=== PATIENT | male | born 1970 | race Caucasian/White ===

== ENCOUNTER 2018-11-17 07:48 | Emergency (ER) | payer MEDICARE, MEDICAID ==
[~2018-11-17] VITALS: Ht 188 cm; Wt 72.6 kg
[~2018-11-17 07:48] MED LIST: ACHD5005 PO; CEPH500C PO; CIPR-225 PO; CIPR500T4 PO; CITA40TA19 PO; CPR500T PO; DOCU-143 PO; HYDR-229 PO; HYDR-2997 PO; HYDR-3730 PO; HYDR-4226 PO; LIDO113G3 TP; NFPRILOC40 PO; ONDAN4ODT SL; OXYC-12 PO; OXYC-471 PO; PHEN-640 PO; POLY17PO6 PO; PRM25T PO; RABE20TA PO; TAMS0.4C98 PO; TRM50T PO
[2018-11-17] MEDS ORDERED: LACTATED RINGERS 1,000 ML IV ONE (07:59)
[2018-11-17] MEDS ORDERED: KETOROLAC 30 MG/ML VIAL IVP ONE (08:00)
--- NOTE | 2018-11-17 08:04 | ED Abdominal Pain ---
General Stated Complaint: ABD PAIN Source of Information: Patient, Family Exam Limitations: No Limitations History of Present Illness Date Seen by Provider: Nov 17, 2018 Time Seen by Provider: 07:52 Initial Comments Patient presents the ER with a chief complaint of about 5:00 this morning he started having some left abdominal flank and back pain. He's not been able to urinate this morning. He has a history of kidney stones and he feels that this pain is from a kidney stone. He denies any nausea. He is taking his last couple doses of harvoni. He does not take any other medications. He denies medical allergies. He denies fevers chills or dysuria or hematuria. Patient states no familial history of coronary disease or early onset coronary disease. No personal history of coronary disease or heart problems. No history of diabetes, thyroid, hypertension, hyperlipidemia. He does have a history of smoking a pack per day. Allergies and Home Medications Allergies Coded Allergies: No Known Drug Allergies (Unverified , 02/09/09) Patient Home Medication List Home Medication List Reviewed: Yes Review of Systems Review of Systems Constitutional: No chills, No diaphoresis, No fever, No malaise EENTM: No Blurred Vision, No Double Vision Respiratory: Denies Cough, Denies Shortness of Air Cardiovascular: Denies Chest Pain, Denies Edema, Denies Palpitations Gastrointestinal: See HPI; Denies Abdomen Distended; Abdominal Pain (left flank and lower quadrant abdomen); Denies Constipated, Denies Diarrhea, Denies Nausea, Denies Poor Fluid Intake Genitourinary: Denies Discharge, Denies Drainage, Denies Frequency Musculoskeletal: No back pain, No joint pain Past Ybpopha-Xpesaf-Urnzrs Hx Patient Social History Alcohol Use: Past History (8 years ago) Recreational Drug Use: Yes Drug of Choice: MJ Smoking Status: Current Everyday Smoker Type Used: Cigarettes (1 pp) Seasonal Allergies Seasonal Allergies: No Past Medical History Gallbladder Reproductive Disorders: No Kidney Stones Chronic Constipation, Hemorrhoids, Hepatitis Chronic Back Pain, Fractures Adverse Reaction/Blood Tranf: No Family Medical History No Pertinent Family Hx Physical Exam Vital Signs Vital Signs - First Documented 11/17/18 08:00 Temp 97.8 Pulse 73 Resp 30 B/P (MAP) 139/94 (109) Pulse Ox 100 Capillary Refill : Height/Weight/BMI Height: 6'2" Weight: 150lbs. 11.2oz. [id number]; 19.26 BMI Method:Stated General Appearance: moderate distress (restless, unable to get comfortable), thin HEENT: PERRL/EOMI, normal ENT inspection, pharynx normal Neck: non-tender, full range of motion, normal inspection Respiratory: chest non-tender, lungs clear, normal breath sounds, no respiratory distress, no accessory muscle use Cardiovascular: normal peripheral pulses, regular rate, rhythm, no edema, no murmur Gastrointestinal: normal bowel sounds, soft, no organomegaly, tenderness (left abdomen mildly) Extremities: normal range of motion, non-tender, normal inspection, normal capillary refill Back: No CVA tenderness (R); CVA tenderness (L) Neurologic/Psychiatric: alert, normal mood/affect, oriented x 3 Skin: normal color, warm/dry Progress/Results/Core Measures Results/Orders Lab Results Laboratory Tests Test 11/17/18 08:15 11/17/18 10:30 Range/Units White Blood Count 8.7 4.3-11.0 10^3/uL Red Blood Count 5.09 4.35-5.85 10^6/uL Hemoglobin 17.5 13.3-17.7 G/DL Hematocrit 49 40-54 % Mean Corpuscular Volume 97 80-99 FL Mean Corpuscular Hemoglobin 34 25-34 PG Mean Corpuscular Hemoglobin Concent 35 32-36 G/DL Red Cell Distribution Width 13.0 10.0-14.5 % Platelet Count 266 130-400 10^3/uL Mean Platelet Volume 8.6 7.4-10.4 FL Neutrophils (%) (Auto) 69 42-75 % Lymphocytes (%) (Auto) 21 12-44 % Monocytes (%) (Auto) 8 0-12 % Eosinophils (%) (Auto) 1 0-10 % Basophils (%) (Auto) 0 0-10 % Neutrophils # (Auto) 6.0 1.8-7.8 X 10^3 Lymphocytes # (Auto) 1.9 1.0-4.0 X 10^3 Monocytes # (Auto) 0.7 0.0-1.0 X 10^3 Eosinophils # (Auto) 0.1 0.0-0.3 10^3/uL Basophils # (Auto) 0.0 0.0-0.1 10^3/uL Prothrombin Time 11.6 L 12.2-14.7 SEC INR Comment 0.9 0.8-1.4 Activated Partial Thromboplast Time 28 24-35 SEC Sodium Level 141 135-145 MMOL/L Potassium Level 4.2 3.6-5.0 MMOL/L Chloride Level 107 98-107 MMOL/L Carbon Dioxide Level 21 21-32 MMOL/L Anion Gap 13 5-14 MMOL/L Blood Urea Nitrogen 17 7-18 MG/DL Creatinine 1.37 H 0.60-1.30 MG/DL Estimat Glomerular Filtration Rate 56 BUN/Creatinine Ratio 12 Glucose Level 90 70-105 MG/DL Calcium Level 9.8 8.5-10.1 MG/DL Corrected Calcium 9.4 8.5-10.1 MG/DL Magnesium Level 2.4 1.8-2.4 MG/DL Total Bilirubin 0.6 0.1-1.0 MG/DL Aspartate Amino Transf (AST/SGOT) 21 5-34 U/L Alanine Aminotransferase (ALT/SGPT) 16 0-55 U/L Alkaline Phosphatase 70 40-136 U/L Myoglobin 57.3 10.0-92.0 NG/ML Troponin I < 0.028 <0.028 NG/ML Total Protein 7.7 6.4-8.2 GM/DL Albumin 4.5 3.2-4.5 GM/DL My Orders Orders - OLIVERIO MANCUSO Ketorolac Injection (Toradol Injection) (11/17/18 08:00) Saline Lock/Iv-Start (11/17/18 07:59) Lactated Ringers (Lr 1000 Ml Iv Solution (11/17/18 07:59) Cbc With Automated Diff (11/17/18 08:05) Magnesium (11/17/18 08:05) Chest 1 View, Ap/Pa Only (11/17/18 08:05) Ekg Tracing (11/17/18 08:05) Cardiac Profile 1 (11/17/18 08:05) Comprehensive Metabolic Panel (11/17/18 08:05) Myoglobin Serum (11/17/18 08:05) Protime With Inr (11/17/18 08:05) Partial Thromboplastin Time (11/17/18 08:05) Monitor-Rhythm Ecg Trace Only (11/17/18 08:05) Ct Abd/Pelvis Wo(Kidney Stone) (11/17/18 08:05) Abdomen/Kub 1view (11/17/18 08:05) Ondansetron Injection (Zofran Injectio (11/17/18 08:15) Ondansetron Injection (Zofran Injectio (11/17/18 08:11) Aspirin Chewable Tablet (Baby Aspirin Ch (11/17/18 08:30) Ekg Tracing (11/17/18 09:00) Fentanyl Injection (Sublimaze Injection (11/17/18 09:00) Ketamine Injection (Ketalar Injection) (11/17/18 09:00) Fentanyl Injection (Sublimaze Injection (11/17/18 08:45) Ns (Ivpb) (Sodium Chloride 0.9% Ivpb Bag (11/17/18 08:55) Lorazepam Injection (Ativan Injection) (11/17/18 09:15) Lorazepam Injection (Ativan Injection) (11/17/18 09:20) Ondansetron Injection (Zofran Injectio (11/17/18 09:45) Lorazepam Injection (Ativan Injection) (11/17/18 09:45) Troponin I (11/17/18 10:30) Medications Given in ED Current Medications Medications Dose Ordered Sig/Bruce Route Start Time Stop Time Status Last Admin Dose Admin Aspirin 324 mg ONCE ONCE PO 11/17/18 08:30 11/17/18 08:31 DC 11/17/18 08:39 324 MG Fentanyl Citrate 50 mcg ONCE ONCE IVP 11/17/18 09:00 11/17/18 09:01 DC 11/17/18 08:50 50 MCG Ketamine HCl 8 mg ONCE ONCE IV 11/17/18 09:00 11/17/18 09:01 DC 11/17/18 09:11 8 MG Ketorolac Tromethamine 30 mg ONCE ONCE IVP 11/17/18 08:00 11/17/18 08:01 DC 11/17/18 08:15 30 MG Lactated Ringer's 1,000 ml @ 0 mls/hr Q0M ONCE IV 11/17/18 07:59 11/17/18 08:01 DC 11/17/18 08:15 1,000 MLS/HR Lorazepam 1 mg ONCE ONCE IVP 11/17/18 09:45 11/17/18 09:46 DC 11/17/18 09:45 1 MG Lorazepam 1 mg ONCE PRN IVP 11/17/18 09:20 11/17/18 09:18 1 MG Ondansetron HCl 4 mg ONCE ONCE IVP 11/17/18 08:15 11/17/18 08:16 DC 11/17/18 08:20 4 MG Ondansetron HCl 4 mg ONCE ONCE IVP 11/17/18 09:45 11/17/18 09:46 DC 11/17/18 09:45 4 MG Sodium Chloride 50 ml @ ud STK-MED ONCE .ROUTE 11/17/18 08:55 11/17/18 09:00 DC 11/17/18 09:12 50 MLS/HR Vital Signs/I&O 11/17/18 08:00 Temp 97.8 Pulse 73 Resp 30 B/P (MAP) 139/94 (109) Pulse Ox 100 Progress Progress Note #1: Time: 08:07 Progress Note The patient's convinced that this pain is from a kidney stone and it seems most likely because he is restless unable to get comfortable. 40 to give him the Toradol pain shot he says he had a few sharp brief second long intermittent stabbing pain in his left chest. It did not radiate anywhere and is having no sweats nausea or chills. He has no history of coronary artery disease. We'll going obtain some blood work and EKG but this likely is just related to his abdominal/flank pain. We'll plan to give him some fluids since he has not been able to urinate today. Couple brief seconds of chest pain while he is having a kidney stone is not great evidence for coronary disease. We will not Give aspirin at this time because he is nauseated and actively vomiting. ED ACS 6 points. Low risk by the EDACS Score. If the patient also has: (1) EKG without new ischemic changes and (2) negative initial and 2-hour troponins, then this patient is safe for discharge to early outpatient follow-up investigation (or proceed to earlier inpatient testing). If EKG with ischemic changes or positive troponin, they are not low risk and require normal risk stratification. Patient does not think this is related to his heart and at this time is declining to do a two-hour delta troponin. Initial EKG has some nonspecific findings of ST depression in inferior leads. We 'll repeat in 30 minutes. We can try and have him chew up some aspirin after his nausea subsides. Progress Note #2: Time: 09:23 Progress Note Patient got 32 cc of the 50 cc bag about 5 mg of the ketamine and began to experience a dysphoric reaction so we stopped the ketamine infusion and gave him a milligram of Ativan. His pain is under great control he denies that he is having any pain. We will continue to monitor him. Progress Note #3: Time: 10:55 Progress Note After a second milligram of Ativan the patient is resting comfortably. His 2 mm kidney stone is just about passed so we'll provide him with a strainer, couple pain medicines, Zofran and some antibiotics with follow-up. Initial ECG Impression Date: Nov 17, 2018 Initial ECG Impression Time: 08:14 Initial ECG Rate: 67 Initial ECG Rhythm: Normal Sinus Initial ECG Intervals: Normal Initial ECG Impression: Normal, Nonspecific Changes Initial ECG Comparisson: No Previous ECG Available Comment Less than one block and ST depression in leads 2, 3, aVF foot. Diagnostic Imaging Diagonstic Imaging: Xray Plain Films/CT/US/NM/MRI: chest (1 view) Comments [facility] [place], [place] NAME: LOREN STEPHEN [facility] REC#: [id number] PT STATUS: REG ER : 1970 PHYSICIAN: OLIVERIO MANCUSO MD ADMIT DATE: 11/17/18/ER Draft Date of Exam:11/17/18 CHEST 1 VIEW, AP/PA ONLY INDICATION: Shortness of breath. FINDINGS: Lungs are hyperexpanded but clear. The nipple shadows bilaterally are noted incidentally. Hilar and mediastinal contours normal. No effusion or pneumothorax. IMPRESSION: Clear mildly hyperexpanded lungs, otherwise negative. Dictated on workstation # [id number] Dict: 11/17/1831 Trans: 11/17/18 0934 KB [id number] Interpreted by: SOHAIL CASTILLO Electronically signed by: Reviewed: Reviewed by Me Diagonstic Imaging: Xray Plain Films/CT/US/NM/MRI: abdomen (KUB 1 view) Comments [facility] [place] [place] NAME: LOREN STEPHEN [facility] REC#: [id number] PT STATUS: REG ER : 1970 PHYSICIAN: OLIVERIO MANCUSO MD ADMIT DATE: 11/17/18/ER Draft Date of Exam:11/17/18 ABDOMEN/KUB 1VIEW INDICATION: Left-sided back pain, inability to urinate. FINDINGS: Left lower renal calculus is present better visualized at earlier CT. Stone either in the bladder's lumen or in the distal left UVJ is believed visualized and not obviously changed from the prior CT measuring just over 2 mm projecting leftward to the coccyx. The bowel gas pattern unremarkable. There is stool in the colon. There are clips at the gallbladder fossa. IMPRESSION: Tiny left paramedian pelvic calculus unchanged from earlier CT. Left lower pole renal stone better visualized at CT. No other significant finding. Dictated on workstation # [id number] Dict: 11/17/18 0925 Trans: 11/17/18 0933 KB [id number] Interpreted by: SOHAIL CASTILLO Electronically signed by: Reviewed: Reviewed by Wa Diagonstic Imaging: CT (without contrast kidney stone study) Plain Films/CT/US/NM/MRI: abdomen, pelvis Comments [facility] [place] [place] NAME: LOREN STEPHEN [facility] REC#: [id number] PT STATUS: REG ER : 1970 PHYSICIAN: OLIVERIO MANCUSO MD ADMIT DATE: 11/17/18/ER Draft Date of Exam:11/17/18 CT ABD/PELVIS WO(KIDNEY STONE) PROCEDURE: CT urinary tract, rule out kidney stone. TECHNIQUE: Multiple contiguous axial images were obtained through the abdomen and pelvis without the use of intravenous contrast. INDICATION: Bilateral flank pain. Study compared 10/28/2015. FINDINGS: Benign subpleural scarring in the right middle lobe stable. Lung bases nonacute. There is a 2.1 mm stone in the left hemipelvis which is either through the UVJ and into the bladder's lumen or at the most distal aspect of the left UVJ. There is minimal upstream hydroureteronephrosis with mild perinephric and periureteric edema but no fluid collection. Additional bilateral intrarenal stones are noted with a right renal cyst. Largest residual renal calculus is in the left lower pole calyx measuring 4.9 mm. The gallbladder is absent. The adrenals, spleen and pancreas negative. No biliary dilatation. No bowel obstruction. No appendicitis or diverticulitis. IMPRESSION: A 2.1 mm stone is either passed or nearly completely passed through the left UVJ with mild upstream left-sided hydroureteronephrosis and additional bilateral intrarenal stones noted. Dictated on workstation # [id number] Dict: 11/17/18918 Trans: 11/17/18929 KB [id number] Interpreted by: SOHAIL CASTILLO Electronically signed by: Reviewed: Reviewed by Me Departure Impression Primary Impression: Left ureteral calculus Additional Impression: Ketamine adverse reaction Qualified Codes: T41.295A - Adverse effect of other general anesthetics, initial encounter Disposition: HOME, SELF-CARE Condition: Stable Departure-Patient Inst. Decision time for Depature: 10:58 [place]: [facility] [place] Primary Care Physician MARIANA CÁRDENAS MD Patient Instructions: Kidney Stones (DC) Add. Discharge Instructions: Drink lots of fluids. Caffeine is okay. Use Tylenol and ibuprofen for your pain or you can take one half to one tablet of pain pill for breakthrough pain Every 6 hours as needed. If you have nausea take one tablet of Zofran every 6 hours and allowed to dissolve in your mouth. Strain your urine to try and see if you catch the stone. Follow-up with urology as necessary. contact centre supervisor the Keflex and take one capsule twice a day for the next 5 days starting tomorrow to prevent worsening urinary tract infection. Take the Flomax 1 tablet every night to help pass the stone. If you passed the stone then you can stop taking the Flomax. Is not unusual have a little bit of blood in the urine or pain for 2 days after passing a stone. Scripts Tamsulosin HCl (Flomax) 0.4 Mg Cap 0.4 MG PO HS for 7 Days, #7 CAP 0 Refills Prov: OLIVERIO MANCUSO 11/17/18 Hydrocodone Bit/Acetaminophen (Hydrocodone/Acetaminophen 5/325mg Tablet) 1 Tab Tab 1-2 EACH PO Q6H PRN for PAIN-BREAKTHROUGH MDD 10 for 7 Days, #15 TAB 0 Refills Prov: OLIVERIO MANCUSO 11/17/18 Ondansetron (Ondansetron Odt) 4 Mg Tab.rapdis 4 MG PO Q6H PRN for NAUSEA/VOMITING, #8 TAB 0 Refills Prov: OLIVERIO MANCUSO 11/17/18 Cephalexin (Cephalexin) 500 Mg Tablet 500 MG PO BID for 5 Days, #10 TAB 0 Refills Prov: OLIVERIO MANCUSO 11/17/18 Work/School Note: Work Release Form Date Seen in the Emergency Department: Nov 17, 2018 Return to Work: Nov 18, 2018 Restrictions: No Restrictions OLIVERIO MANCUSO Nov 17, 2018 08:04
[2018-11-17] MEDS ORDERED: ONDANSETRON 4 MG/2 ML (SDV) Z0FRAN ONE (08:11)
[2018-11-17] MEDS ORDERED: ONDANSETRON 4 MG/2 ML (SDV) Z0FRAN IVP ONE ×2 (08:15→09:45)
[2018-11-17 08:22] LABS: BASOPHILS % (AUTO) 0 % (0-10); EOSINOPHILS # (AUTO) 0.1 10^3/uL (0.0-0.3); EOSINOPHILS % (AUTO) 1 % (0-10); HEMATOCRIT 49 % (40-54); HEMOGLOBIN 17.5 G/DL (13.3-17.7); LYMPHOCYTES # (AUTO) 1.9 X 10^3 (1.0-4.0); LYMPHOCYTES % (AUTO) 21 % (12-44); MEAN CORPUSCULAR HEMOGLOBIN 34 PG (25-34); MEAN CORPUSCULAR HGB CONC 35 G/DL (32-36); MEAN CORPUSCULAR VOLUME 97 FL (80-99); MEAN PLATELET VOLUME 8.6 FL (7.4-10.4); MONOCYTES # (AUTO) 0.7 X 10^3 (0.0-1.0); MONOCYTES % (AUTO) 8 % (0-12); NEUTROPHILS % (AUTO) 69 % (42-75); PLATELET COUNT 266 10^3/uL (130-400); WHITE BLOOD COUNT 8.7 10^3/uL (4.3-11.0)
[2018-11-17] MEDS ORDERED: ASPIRIN 81 MG CHEW (CHILDREN'S ASA) PO ONE (08:30)
[2018-11-17 08:33] LABS: INR 0.9 (0.8-1.4); PROTHROMBIN TIME PATIENT 11.6 SEC (12.2-14.7)
[2018-11-17] MEDS ORDERED: LEDI1TAB PO (08:36)
[2018-11-17 08:41] LABS: ALANINE AMINOTRANSFERASE 16 U/L (0-55); ALBUMIN 4.5 GM/DL (3.2-4.5); ALKALINE PHOSPHATASE 70 U/L (40-136); BILIRUBIN,TOTAL 0.6 MG/DL (0.1-1.0); BUN/CREATININE RATIO 12; CALCIUM 9.8 MG/DL (8.5-10.1); CARBON DIOXIDE 21 MMOL/L (21-32); CHLORIDE 107 MMOL/L (98-107); CREATININE SERUM 1.37 MG/DL (0.60-1.30); GFR ESTIMATED 56; GLUCOSE 90 MG/DL (70-105); MAGNESIUM 2.4 MG/DL (1.8-2.4); POTASSIUM 4.2 MMOL/L (3.6-5.0); SODIUM 141 MMOL/L (135-145); TOTAL PROTEIN 7.7 GM/DL (6.4-8.2)
[2018-11-17] MEDS ORDERED: fentaNYL INJECTION 100 MCG/2 ML AMP ONE (08:45)
[2018-11-17 08:47] LABS: MYOGLOBIN SERUM 57.3 NG/ML (10.0-92.0)
[2018-11-17] MEDS ORDERED: NS (IVPB) 50 ML ONE (08:55)
[2018-11-17] MEDS ORDERED: KETAMINE HCL 100 MG/ML 5 ML VIAL IV ONE (09:00)
[2018-11-17] MEDS ORDERED: fentaNYL INJECTION 100 MCG/2 ML AMP IVP ONE (09:00)
[2018-11-17] MEDS ORDERED: LORazepam INJ 2 MG/ML (ATIVAN) VIAL ONE (09:15)
--- NOTE | 2018-11-17 09:17 | NUR ---
PT HAVING ADVERSE SIDE EFFECT FROM KETAMINE, SHAKING,YELLING OUT, SCARED, STATES FEELING LIKE ROOM IS SPINNING
[2018-11-17] MEDS ORDERED: LORazepam INJ 2 MG/ML (ATIVAN) VIAL IVP PRN (09:20)
--- NOTE | 2018-11-17 09:30 | Diagnostic Imaging Report ---
PROCEDURE: CT urinary tract, rule out kidney stone. TECHNIQUE: Multiple contiguous axial images were obtained through the abdomen and pelvis without the use of intravenous contrast. INDICATION: Bilateral flank pain. Study compared 10/28/2015. FINDINGS: Benign subpleural scarring in the right middle lobe stable. Lung bases nonacute. There is a 2.1 mm stone in the left hemipelvis which is either through the UVJ and into the bladder's lumen or at the most distal aspect of the left UVJ. There is minimal upstream hydroureteronephrosis with mild perinephric and periureteric edema but no fluid collection. Additional bilateral intrarenal stones are noted with a right renal cyst. Largest residual renal calculus is in the left lower pole calyx measuring 4.9 mm. The gallbladder is absent. The adrenals, spleen and pancreas negative. No biliary dilatation. No bowel obstruction. No appendicitis or diverticulitis. IMPRESSION: A 2.1 mm stone is either passed or nearly completely passed through the left UVJ with mild upstream left-sided hydroureteronephrosis and additional bilateral intrarenal stones noted. Dictated by: Dictated on workstation # [id number]
--- NOTE | 2018-11-17 09:33 | Diagnostic Imaging Report ---
INDICATION: Left-sided back pain, inability to urinate. FINDINGS: Left lower renal calculus is present better visualized at earlier CT. Stone either in the bladder's lumen or in the distal left UVJ is believed visualized and not obviously changed from the prior CT measuring just over 2 mm projecting leftward to the coccyx. The bowel gas pattern unremarkable. There is stool in the colon. There are clips at the gallbladder fossa. IMPRESSION: Tiny left paramedian pelvic calculus unchanged from earlier CT. Left lower pole renal stone better visualized at CT. No other significant finding. Dictated by: Dictated on workstation # [id number]
--- NOTE | 2018-11-17 09:34 | Diagnostic Imaging Report ---
INDICATION: Shortness of breath. FINDINGS: Lungs are hyperexpanded but clear. The nipple shadows bilaterally are noted incidentally. Hilar and mediastinal contours normal. No effusion or pneumothorax. IMPRESSION: Clear mildly hyperexpanded lungs, otherwise negative. Dictated by: Dictated on workstation # [id number]
[2018-11-17] MEDS ORDERED: LORazepam INJ 2 MG/ML (ATIVAN) VIAL IVP ONE (09:45)
[2018-11-17] MEDS ORDERED: cefTRIAXone FOR IV USE 1,000 MG in NS (IVPB) 50 ML IV ONE (11:00)
[2018-11-17] MEDS ORDERED: ACHD5005 PO (11:13)
[2018-11-17] MEDS ORDERED: TAMS0.4C98 PO (11:13)
[2018-11-17] MEDS ORDERED: ONDA4TAB11 PO (11:13)
[2018-11-17] MEDS ORDERED: CEPH500T PO (11:13)
[2018-11-17 11:19] VITALS: BP 118/82
== END 2018-11-17 11:23 | disposition home or self-care (01) ==
LOC: EDUNIT# 07:48 → ER 07:49
DX: N13.2 Hydronephrosis with renal and ureteral calculous obstruction (principal); T41.295A Adverse effect of other general anesthetics, initial encounter; M54.5 Low back pain; R06.02 Shortness of breath; F17.210 Nicotine dependence, cigarettes, uncomplicated; Z87.442 Personal history of urinary calculi; Z87.19 Personal history of other diseases of the digestive system
CPT/HCPCS: 36415; 71045; 74018; 74176; 80053; 83735; 83874; 84484; 85025; 85610; 85730; 93005; 93041; 96361; 96374; 96375; 96376

== ENCOUNTER 2019-07-21 09:26 | Emergency (ER) | payer MEDICARE, MEDICAID ==
[~2019-07-21] VITALS: Ht 187 cm; Wt 69.2 kg
[~2019-07-21 09:26] MED LIST changes: +CEPH500T PO; +LEDI1TAB PO; +ONDA4TAB11 PO
[2019-07-21] MEDS ORDERED: NS IV 1000 ML 1,000 ML IV ONE ×2 (09:54→12:46)
[2019-07-21] MEDS ORDERED: KETOROLAC 30 MG/ML VIAL IVP STA (09:54)
[2019-07-21] MEDS ORDERED: fentaNYL INJECTION 100 MCG/2 ML AMP IVP STA (09:54)
[2019-07-21 10:03] LABS: BASOPHILS % (AUTO) 0 % (0-10); EOSINOPHILS # (AUTO) 0.1 10^3/uL (0.0-0.3); EOSINOPHILS % (AUTO) 2 % (0-10); HEMATOCRIT 48 % (40-54); HEMOGLOBIN 16.3 G/DL (13.3-17.7); LYMPHOCYTES # (AUTO) 1.8 X 10^3 (1.0-4.0); LYMPHOCYTES % (AUTO) 27 % (12-44); MEAN CORPUSCULAR HEMOGLOBIN 33 PG (25-34); MEAN CORPUSCULAR HGB CONC 34 G/DL (32-36); MEAN CORPUSCULAR VOLUME 96 FL (80-99); MEAN PLATELET VOLUME 9.1 FL (7.4-10.4); MONOCYTES # (AUTO) 0.8 X 10^3 (0.0-1.0); MONOCYTES % (AUTO) 12 % (0-12); NEUTROPHILS # (AUTO) 3.8 X 10^3 (1.8-7.8); NEUTROPHILS % (AUTO) 59 % (42-75); PLATELET COUNT 213 10^3/uL (130-400); RED CELL DISTRIBUTION WIDTH 12.8 % (10.0-14.5); WHITE BLOOD COUNT 6.5 10^3/uL (4.3-11.0)
--- NOTE | 2019-07-21 10:04 | NUR ---
PT COMPLAINS OF NAUSEA. DR ESPINOZA NOTIFIED.
--- NOTE | 2019-07-21 10:04 | ED Abdominal Pain ---
General Chief Complaint: Abdominal/GI Problems Stated Complaint: L SIDE PAIN Nursing Triage Note: ARRIVED VIA AMB TO ROOM 06 WITH COMPLAINTS OF LEFT SIDED ABD PAIN. THINKS IT MIGHT BE A KIDNEY STONE. Sepsis Screen: No Definite Risk Source of Information: Patient Exam Limitations: No Limitations History of Present Illness Date Seen by Provider: Jul 21, 2019 Time Seen by Provider: 09:50 Initial Comments Here with report of left lower quadrant abdominal pain since Saturday. States he's been drinking lots of water. Does have history of kidney stones and states that it feels like that. Reports that the pain is in the left lower quadrant but denies flank or back pain. He then goes on to say that he has left flank and back pain as well. States that it is hurting to touch and hurts to sit up. He's had previous kidney stones on the right but not on the left. Denies dysuria or blood in the urine. Reports that he is drinking lots of water but cannot urinate currently. Reports nausea but denies vomiting, diarrhea or fever. Timing/Duration: 2-3 Days Severity/Quality: Moderate, Severe, Aching Location: LLQ, Flank Radiation: Back Activities at Onset: None Modifying Factors: Worsens With Movement Associated Symptoms: Back Pain, Fever/Chills, Nausea/Vomiting; No Weakness Allergies and Home Medications Allergies Coded Allergies: ketamine (Verified Allergy, Severe, SEIZURE, 07/21/19) Home Medications Cephalexin 500 Mg Tablet, 500 MG PO BID Prescribed by: CAYLA ESPINOZA on 07/21/19 1249 Hydrocodone Bit/Acetaminophen 1 Ea Tablet, 1 EACH PO Q6H PRN for PAIN-MODERATE Prescribed by: CAYLA ESPINOZA on 07/21/19 1249 Patient Home Medication List Home Medication List Reviewed: Yes Review of Systems Review of Systems Constitutional: see HPI; No chills, No fever EENTM: No Symptoms Reported Respiratory: No Symptoms Reported Cardiovascular: No Symptoms Reported Gastrointestinal: See HPI Genitourinary: See HPI, Flank Pain, Pain Musculoskeletal: back pain, muscle pain Skin: lesions (left lower quadrant reports that there is an area of skin that has changed color.) Psychiatric/Neurological: No Symptoms Reported All Other Systems Reviewed Negative Unless Noted: Yes Past Gawwimi-Hcrinf-Utlgmq Hx Past Med/Social Hx: Reviewed Nursing Past Med/Soc Hx Patient Social History Alcohol Use: Past History Recreational Drug Use: Yes Drug of Choice: MJ Smoking Status: Current Everyday Smoker Type Used: Cigarettes Recent Foreign Travel: No Contact w/Someone Who Travel: No Recent Infectious Disease Expo: No Recent Hopitalizations: No Seasonal Allergies Seasonal Allergies: No Past Medical History Surgeries: Yes (back surgery, left arm fx, cysto and ureteroscopy, eswl) Gallbladder, Orthopedic Respiratory: No Cardiac: No Neurological: No Reproductive Disorders: No Kidney Stones Gastrointestinal: Yes (recurrent elevation in lipase, hx hep C) Chronic Constipation, Hemorrhoids, Hepatitis Musculoskeletal: Yes (5 ruptured disk) Chronic Back Pain, Fractures Endocrine: No Cancer: No Psychosocial: No Integumentary: No Blood Disorders: No Adverse Reaction/Blood Tranf: No Family Medical History Reviewed Nursing Family Hx No Pertinent Family Hx Physical Exam Vital Signs Vital Signs - First Documented 07/21/19 09:30 Temp 35.8 Pulse 71 Resp 16 B/P (MAP) 135/101 (112) Pulse Ox 100 O2 Delivery Room Air Capillary Refill : Less Than 3 Seconds Height/Weight/BMI Height: 6'2.00" Weight: 160lbs. 11.2oz. 72.390879mb; 19.00 BMI Method:Stated General Appearance: WD/WN, mild distress HEENT: PERRL/EOMI, pharynx normal Neck: full range of motion, supple Respiratory: lungs clear, normal breath sounds Cardiovascular: regular rate, rhythm, no murmur Peripheral Pulses: 2+ Dorsalis Pedis (R), 2+ Left Dors-Pedis (L), 2+ Radial Pulses (R), 2+ Radial Pulses (L) Gastrointestinal: soft, guarding (left lower quadrant), tenderness (left lower quadrant and flank); No mass Extremities: non-tender, normal inspection Back: normal inspection, no CVA tenderness, no vertebral tenderness Neurologic/Psychiatric: alert, oriented x 3 Skin: normal color, warm/dry; No rash; other (patient reported area skin change on the left lower abdomen. I do not see any significant erythema, rash, redness or other concerns. He does have some pigmentation area on the left lower quadrant that he is referring to.) Progress/Results/Core Measures Results/Orders Lab Results Laboratory Tests Test 07/21/19 09:43 07/21/19 10:44 Range/Units White Blood Count 6.5 4.3-11.0 10^3/uL Red Blood Count 4.97 4.35-5.85 10^6/uL Hemoglobin 16.3 13.3-17.7 G/DL Hematocrit 48 40-54 % Mean Corpuscular Volume 96 80-99 FL Mean Corpuscular Hemoglobin 33 25-34 PG Mean Corpuscular Hemoglobin Concent 34 32-36 G/DL Red Cell Distribution Width 12.8 10.0-14.5 % Platelet Count 213 130-400 10^3/uL Mean Platelet Volume 9.1 7.4-10.4 FL Neutrophils (%) (Auto) 59 42-75 % Lymphocytes (%) (Auto) 27 12-44 % Monocytes (%) (Auto) 12 0-12 % Eosinophils (%) (Auto) 2 0-10 % Basophils (%) (Auto) 0 0-10 % Neutrophils # (Auto) 3.8 1.8-7.8 X 10^3 Lymphocytes # (Auto) 1.8 1.0-4.0 X 10^3 Monocytes # (Auto) 0.8 0.0-1.0 X 10^3 Eosinophils # (Auto) 0.1 0.0-0.3 10^3/uL Basophils # (Auto) 0.0 0.0-0.1 10^3/uL Sodium Level 140 135-145 MMOL/L Potassium Level 4.4 3.6-5.0 MMOL/L Chloride Level 106 98-107 MMOL/L Carbon Dioxide Level 27 21-32 MMOL/L Anion Gap 7 5-14 MMOL/L Blood Urea Nitrogen 15 7-18 MG/DL Creatinine 2.00 H 0.60-1.30 MG/DL Estimat Glomerular Filtration Rate 36 BUN/Creatinine Ratio 8 Glucose Level 91 70-105 MG/DL Calcium Level 9.2 8.5-10.1 MG/DL Corrected Calcium 8.9 8.5-10.1 MG/DL Total Bilirubin 0.7 0.1-1.0 MG/DL Aspartate Amino Transf (AST/SGOT) 19 5-34 U/L Alanine Aminotransferase (ALT/SGPT) 8 0-55 U/L Alkaline Phosphatase 71 40-136 U/L C-Reactive Protein High Sensitivity 0.30 0.00-0.50 MG/DL Total Protein 7.1 6.4-8.2 GM/DL Albumin 4.4 3.2-4.5 GM/DL Lipase 48 8-78 U/L Urine Color YELLOW Urine Clarity CLEAR Urine pH 6 5-9 Urine Specific [place] 1.015 L 1.016-1.022 Urine Protein 2+ H NEGATIVE Urine Glucose (UA) NEGATIVE NEGATIVE Urine Ketones 2+ H NEGATIVE Urine Nitrite NEGATIVE NEGATIVE Urine Bilirubin NEGATIVE NEGATIVE Urine Urobilinogen NORMAL NORMAL MG/DL Urine Leukocyte Esterase NEGATIVE NEGATIVE Urine RBC (Auto) NEGATIVE NEGATIVE Urine RBC RARE /HPF Urine WBC 2-5 /HPF Urine Squamous Epithelial Cells 2-5 /HPF Urine Crystals NONE /LPF Urine Bacteria TRACE /HPF Urine Casts NONE /LPF Urine Mucus SMALL H /LPF Urine Culture Indicated NO My Orders Orders - CAYLA ESPINOZA MD Ed Iv/Invasive Line Start (07/21/19 09:54) Ns Iv 1000 Ml (Sodium Chloride 0.9%) (07/21/19 09:54) Fentanyl Injection (Sublimaze Injection (07/21/19 09:54) Ketorolac Injection (Toradol Injection) (07/21/19 09:54) Cbc With Automated Diff (07/21/19 09:54) Comprehensive Metabolic Panel (07/21/19 09:54) Hs C Reactive Protein (07/21/19 09:54) Ua Culture If Indicated (07/21/19 09:54) Ondansetron Injection (Zofran Injectio (07/21/19 10:15) Hydromorphone Injection (Dilaudid Inject (07/21/19 10:45) Lipase (07/21/19 10:46) Hydromorphone Injection (Dilaudid Inject (07/21/19 11:45) Ct Abdomen/Pelvis Wo (07/21/19 ) Abdomen/Kub 1view (07/21/19 12:20) Ed Iv/Invasive Line Start (07/21/19 12:46) Ns Iv 1000 Ml (Sodium Chloride 0.9%) (07/21/19 12:46) Hydromorphone Injection (Dilaudid Inject (07/21/19 13:00) Medications Given in ED Current Medications Medications Dose Ordered Sig/Bruce Route Start Time Stop Time Status Last Admin Dose Admin Hydromorphone HCl 0.5 mg ONCE ONCE IV 07/21/19 11:45 07/21/19 11:46 DC 07/21/19 11:44 0.5 MG Hydromorphone HCl 1 mg ONCE ONCE IV 07/21/19 10:45 07/21/19 10:46 DC 07/21/19 10:39 1 MG Hydromorphone HCl 1 mg ONCE ONCE IV 07/21/19 13:00 07/21/19 13:01 DC 07/21/19 12:53 1 MG Ondansetron HCl 4 mg ONCE ONCE IVP 07/21/19 10:15 07/21/19 10:16 DC 07/21/19 10:07 4 MG Sodium Chloride 1,000 ml @ 0 mls/hr Q0M ONCE IV 07/21/19 09:54 07/21/19 09:56 DC 07/21/19 10:03 1,000 MLS/HR Sodium Chloride 1,000 ml @ 0 mls/hr Q0M ONCE IV 07/21/19 12:46 07/21/19 12:48 DC 07/21/19 12:53 1,000 MLS/HR Vital Signs/I&O 07/21/19 09:30 Temp 35.8 Pulse 71 Resp 16 B/P (MAP) 135/101 (112) Pulse Ox 100 O2 Delivery Room Air Blood Pressure Mean: 112 Progress Progress Note : Progress Note Seen and evaluated. IV, labs, UA, normal saline 1 L bolus, fentanyl 75 g IV, Toradol 30 mg IV and Zofran 4 mg IV ordered. Anticipate CT scan pending UA. Monitor patient. 1035: Patient's still in pain. Hydromorphone 1 mg IV ordered. Still pending UA. 1048: Patient now complaining of epigastric abdominal pain. Does have history of hepatitis C. Patient has a variety of different complaints related to the abdomen and etiology is unclear. Due to this, we will go ahead and get CT scan of the abdomen and pelvis both with and without contrast to evaluate. 1236: CT does note left distal ureteral stone. CT without done as patient was not able to do with contrast due to elevated creatinine. The patient is in pain again. We will repeat Dilaudid 1 mg IV. He had no adverse effect on previous dose but did have some pain control. Patient to x-ray for KUB. We will repeat normal saline 1 L bolus. Monitor patient and anticipate discharge soon. 1338: Discharged home with return precautions. Patient verbalize understanding instructions and agreement with plan. Diagnostic Imaging Diagonstic Imaging: CT Plain Films/CT/US/NM/MRI: abdomen, pelvis Comments [facility] [place], [place] NAME: LOREN STEPHEN [facility] REC#: [id number] PT STATUS: REG ER : 1970 PHYSICIAN: CAYLA ESPINOZA MD ADMIT DATE: 07/21/19/ER Draft Date of Exam:07/21/19 CT ABDOMEN/PELVIS WO PROCEDURE: CT abdomen and pelvis without contrast. TECHNIQUE: Multiple contiguous axial images were obtained through the abdomen and pelvis without the use of intravenous contrast. Auto Exposure Controls were utilized during the CT exam to meet ALARA standards for radiation dose reduction. INDICATION: Left-sided flank pain The previous CT abdomen/pelvis exam of 11/17/2018 noted partial obstruction of the left collecting system due to a 2.1 mm calculus at the ureteral vesicle junction. There are also nonobstructive calculi within both kidneys. In the interval since the prior exam a 4.6 mm calculus has migrated from the left kidney into the distal left ureter. The calculus lies approximately 1 cm from the ureterovesical junction. There is dilatation of the left ureter and left renal pelvis consistent with partial obstruction of the left collecting system. There is no evidence for nephrolithiasis on the left. The small nonobstructing calculus within the right kidney seen previously is again evident as is the suspected cyst involving the right kidney. The overall appearance of the abdomen and pelvis has not changed significantly otherwise. The liver, spleen, pancreas, adrenals, aorta and inferior vena cava show no acute abnormality. As noted on the prior exam the gallbladder is surgically absent. Stomach is partially filled with gas and fluid and consequently difficult to assess. The appendix was not particularly well visualized but there are no indirect signs of acute appendicitis. There may be a few diverticula in the sigmoid colon but there is no evidence for an acute diverticulitis. The urinary bladder is grossly unremarkable. The prostate gland is mildly enlarged but unchanged in size when compared to the previous study. The bone windows show no evidence for a fracture or for a destructive lesion. As noted on the prior exam there is fairly severe degenerative disc and bone disease at L4-L5 and L5-S1. There does seem to be trefoil stenosis at L4-L5. The lung bases are clear. IMPRESSION: 1. There is partial obstruction of the left collecting system due to a 4.6 mm calculus in the distal left ureter. 2. There is no acute abnormality of the abdomen or pelvis noted otherwise. 3. These results were discussed with RIKI SILVA APRN. Dictated on workstation # [id number] Dict: 07/21/19 1212 Trans: 07/21/19 1222 REILLY [id number] Interpreted by: TAM CLAYTON MD Electronically signed by: Clarissagonstic Imaging: Xray Plain Films/CT/US/NM/MRI: abdomen Comments [facility] [place], [place] NAME: LOREN STEPHEN [facility] REC#: [id number] PT STATUS: REG ER : 1970 PHYSICIAN: CAYLA ESPINOZA MD ADMIT DATE: 07/21/19/ER Draft Date of Exam:07/21/19 ABDOMEN/KUB 1VIEW EXAMINATION: Supine abdomen at 1240 hours. INDICATION: Left nephrolithiasis. Two supine views of the abdomen were obtained. FINDINGS: The CT abdomen/pelvis performed earlier today at 11:53 a.m. noted partial obstruction of the left collecting system due to a 4.6 mm calculus near the ureterovesical junction. That calculus is again identified on this study and seems unchanged in position. There are no other pathological calcifications evident. There is some gas in both large and small bowel in a nonspecific fashion. There is no sign of a bowel obstruction. There is no mass or organomegaly identified. The osseous structures are intact. Surgical clips are evident in the right upper quadrant consistent a with prior cholecystectomy. IMPRESSION: 1. The obstructive calculus in the distal left ureter seen on the CT abdomen exam is again evident on this study. The calculus seems similar in position to the prior exam. 2. There is no acute abnormality of the abdomen or pelvis noted otherwise. Dictated on workstation # [id number] Dict: 07/21/19 1300 Trans: 07/21/19 1306 [facility] [id number] Interpreted by: TAM CLAYTON MD Electronically signed by: Departure Impression Primary Impression: Left ureteral stone Disposition: HOME, SELF-CARE Condition: Stable Departure-Patient Inst. Decision time for Depature: 12:38 Referrals: [facility] [place] Primary Care Physician MARIANA CÁRDENAS MD Patient Instructions: Kidney Stones (DC) Add. Discharge Instructions: All discharge instructions reviewed with patient and/or family. Voiced understanding. Take medications as directed. Follow-up with Dr. Cárdenas within a few days for recheck and further evaluation. Call his office today for appointment. Return for worse pain, fever, vomiting, weakness, breathing problems or other concerns as needed. Drink plenty of fluids. Caffeinated beverages are okay to drink. Scripts Hydrocodone Bit/Acetaminophen (LORTAB 7.5 MG TABLET) 1 Ea Tablet 1 EACH PO Q6H PRN for PAIN-MODERATE, #14 TAB 0 Refills Prov: CAYLA ESPINOZA MD 07/21/19 Cephalexin (Cephalexin) 500 Mg Tablet 500 MG PO BID, #14 TAB 0 Refills Prov: CAYLA ESPINOZA MD 07/21/19 Copy Copies To 1: MARIANA CÁRDENAS MD, TIMOTHY D MD Jul 21, 2019 10:04
[2019-07-21 10:13] LABS: ALBUMIN 4.4 GM/DL (3.2-4.5); BILIRUBIN,TOTAL 0.7 MG/DL (0.1-1.0); CALCIUM 9.2 MG/DL (8.5-10.1); POTASSIUM 4.4 MMOL/L (3.6-5.0); TOTAL PROTEIN 7.1 GM/DL (6.4-8.2)
[2019-07-21] MEDS ORDERED: ONDANSETRON 4 MG/2 ML (SDV) Z0FRAN IVP ONE (10:15)
--- NOTE | 2019-07-21 10:32 | NUR ---
PT STATES HE IS STILL HURTING. DR ESPINOZA NOTIFIED.
[2019-07-21] MEDS ORDERED: HYDROmorphone 2 MG/ML VIAL (DILAUDID) IV ONE ×3 (10:45→13:00)
--- NOTE | 2019-07-21 10:48 | NUR ---
PT NOW STATES HE IS HAVING EPIGASTRIC PAIN ALONG WITH THE LEFT SIDED PAIN. NOTIFIED.
[2019-07-21 10:53] LABS: BILIRUBIN,URINE NEGATIVE (NEGATIVE); CLARITY,URINE CLEAR; COLOR,URINE YELLOW; GLUCOSE, URINE (UA) NEGATIVE (NEGATIVE); KETONES,URINE 2+ (NEGATIVE); LEUKOCYTE ESTERASE ,URINE NEGATIVE (NEGATIVE); NITRITE,URINE NEGATIVE (NEGATIVE); PH,URINE 6 (5-9); PROTEIN,URINE 2+ (NEGATIVE); UROBILINOGEN,URINE NORMAL (NORMAL)
[2019-07-21 11:01] LABS: BACTERIA,URINE TRACE /HPF; RBC,URINE RARE /HPF
--- NOTE | 2019-07-21 11:37 | NUR ---
PT COMPLAINS OF PAIN AND WANTING TO KNOW THE PLAN. NOTIFIED HIM WE WERE WAITING ON CT TO COME AND GET HIM. DR ESPINOZA NOTIFIED OF PT'S CONTINUING PAIN.
--- NOTE | 2019-07-21 12:25 | Diagnostic Imaging Report ---
PROCEDURE: CT abdomen and pelvis without contrast. TECHNIQUE: Multiple contiguous axial images were obtained through the abdomen and pelvis without the use of intravenous contrast. Auto Exposure Controls were utilized during the CT exam to meet ALARA standards for radiation dose reduction. INDICATION: Left-sided flank pain The previous CT abdomen/pelvis exam of 11/17/2018 noted partial obstruction of the left collecting system due to a 2.1 mm calculus at the ureteral vesicle junction. There are also nonobstructive calculi within both kidneys. In the interval since the prior exam a 4.6 mm calculus has migrated from the left kidney into the distal left ureter. The calculus lies approximately 1 cm from the ureterovesical junction. There is dilatation of the left ureter and left renal pelvis consistent with partial obstruction of the left collecting system. There is no evidence for nephrolithiasis on the left. The small nonobstructing calculus within the right kidney seen previously is again evident as is the suspected cyst involving the right kidney. The overall appearance of the abdomen and pelvis has not changed significantly otherwise. The liver, spleen, pancreas, adrenals, aorta and inferior vena cava show no acute abnormality. As noted on the prior exam the gallbladder is surgically absent. Stomach is partially filled with gas and fluid and consequently difficult to assess. The appendix was not particularly well visualized but there are no indirect signs of acute appendicitis. There may be a few diverticula in the sigmoid colon but there is no evidence for an acute diverticulitis. The urinary bladder is grossly unremarkable. The prostate gland is mildly enlarged but unchanged in size when compared to the previous study. The bone windows show no evidence for a fracture or for a destructive lesion. As noted on the prior exam there is fairly severe degenerative disc and bone disease at L4-L5 and L5-S1. There does seem to be trefoil stenosis at L4-L5. The lung bases are clear. IMPRESSION: 1. There is partial obstruction of the left collecting system due to a 4.6 mm calculus in the distal left ureter. 2. There is no acute abnormality of the abdomen or pelvis noted otherwise. 3. These results were discussed with RIKI SILVA APRN. Dictated by: Dictated on workstation # [id number]
--- NOTE | 2019-07-21 12:33 | NUR ---
IN TALKING TO PT AT THIS TIME.
[2019-07-21] MEDS ORDERED: CEPH500T PO (12:49)
[2019-07-21] MEDS ORDERED: HYDR-34 PO (12:49)
--- NOTE | 2019-07-21 13:07 | Diagnostic Imaging Report ---
EXAMINATION: Supine abdomen at 1240 hours. INDICATION: Left nephrolithiasis. Two supine views of the abdomen were obtained. FINDINGS: The CT abdomen/pelvis performed earlier today at 11:53 a.m. noted partial obstruction of the left collecting system due to a 4.6 mm calculus near the ureterovesical junction. That calculus is again identified on this study and seems unchanged in position. There are no other pathological calcifications evident. There is some gas in both large and small bowel in a nonspecific fashion. There is no sign of a bowel obstruction. There is no mass or organomegaly identified. The osseous structures are intact. Surgical clips are evident in the right upper quadrant consistent a with prior cholecystectomy. IMPRESSION: 1. The obstructive calculus in the distal left ureter seen on the CT abdomen exam is again evident on this study. The calculus seems similar in position to the CT exam. 2. There is no acute abnormality of the abdomen or pelvis noted otherwise. Dictated by: Dictated on workstation # [id number]
[2019-07-21 13:41] VITALS: BP 134/72
== END 2019-07-21 13:41 | disposition home or self-care (01) ==
LOC: EDUNIT# 09:26 → ER 09:27
DX: N20.1 Calculus of ureter (principal); F17.210 Nicotine dependence, cigarettes, uncomplicated; B19.20 Unspecified viral hepatitis C without hepatic coma; Z88.4 Allergy status to anesthetic agent
CPT/HCPCS: 36415; 74018; 74176; 80053; 81000; 83690; 85025; 86141; 93041

== ENCOUNTER → 2019-07-23 | Outpatient (CLI) | payer MEDICARE, MEDICAID ==
[~2019-07-23] MED LIST changes: +HYDR-34 PO
--- NOTE | 2019-07-23 15:11 | Diagnostic Imaging Report ---
INDICATION: Left ureteral calculus. COMPARISON: 07/21/2019. FINDINGS: Two supine views of the abdomen were obtained. Again identified is small calculus projecting over the left hemipelvis, which corresponds to previously described distal ureteral calculus. No new radiopaque foreign bodies or other unexpected extraosseous calcifications are seen. Small bowel loops are nondistended. There is no large collection of free intraperitoneal air. Osseous structures show no acute abnormalities. IMPRESSION: 1. Distal left ureteral calculus appears to be in stable position. Dictated by: Dictated on workstation # [id number]
== END ==
LOC: RAD 13:43
PROVIDERS: ATTEND Urology
DX: N20.1 Calculus of ureter (principal)
CPT/HCPCS: 74018

== ENCOUNTER 2019-07-27 05:51 | Outpatient (CLI) | payer MEDICARE, MEDICAID ==
[~2019-07-27] VITALS: Ht 188 cm; Wt 69.2 kg
== END 2019-07-27 16:06 | disposition home or self-care (01) ==
LOC: PREOP 05:51
PROVIDERS: ATTEND Urology
DX: Z01.818 Encounter for other preprocedural examination (principal)

== ENCOUNTER 2019-07-29 08:23 | Day surgery (SDC) | payer MEDICARE, MEDICAID ==
[~2019-07-29] VITALS: Ht 188 cm; Wt 69.2 kg
[2019-07-29] VITALS (9 sets, daily range): BP systolic 95–127; BP diastolic 74–86
[2019-07-29] MEDS ORDERED: LACTATED RINGERS 1,000 ML IV PRN (08:55)
[2019-07-29] MEDS ORDERED: cefTRIAXone FOR IV USE 1,000 MG in WATER (STERILE) FOR INJECTION 10 ML IV ONE (09:00)
--- NOTE | 2019-07-29 09:07 | Progress Note-Post Operative ---
Post-Operative Progess Note Surgeon (s)/Saddle Mechanic (s) Surgeon MARIANA CÁRDENAS MD Saddle Mechanic: NONE Pre-Operative Diagnosis LT DISTAL URETERAL STONE Post-Operative Diagnosis SAME Procedure & Operative Findings Date of Procedure 07/29/19 Procedure Performed/Findings LT URETEROSCOPY WITH STONE BASKET Anesthesia Type GENERAL Estimated Blood Loss Estimated blood loss (mL): NONE Specimens/Packing Specimens Removed STONE FOR ANALYSIS Packing: NONE MARIANA CÁRDENAS MD Jul 29, 2019 09:07
--- NOTE | 2019-07-29 09:07 | Progress Note-Pre Operative ---
Pre-Operative Progress Note H&P Reviewed The H&P was reviewed, patient examined and no changes noted. Date Seen by Provider: Jul 29, 2019 Time Seen by Provider: 09:06 Date H&P Reviewed: Jul 29, 2019 Time H&P Reviewed: 09:06 Pre-Operative Diagnosis: LT DISTAL URETERAL STONE MARIANA CÁRDENAS MD Jul 29, 2019 09:07
--- NOTE | 2019-07-29 09:08 | Diagnostic Imaging Report ---
INDICATION: Preop for left ureteral stone. TIME OF EXAM: 8:47 AM Correlation is made with prior abdominal radiograph from 07/23/2019. FINDINGS: Previously noted left pelvic calcification is in similar position to the exam from 07/23/2019. No other radiopaque calculi are seen. Bowel gas pattern is unremarkable. Gallbladder is surgically absent. IMPRESSION: Stable KUB since examination 6 days earlier. Dictated by: Dictated on workstation # [id number]
[2019-07-29] MEDS ORDERED: fentaNYL INJECTION 100 MCG/2 ML AMP ONE (09:10)
[2019-07-29] MEDS ORDERED: ONDANSETRON 4 MG/2 ML (SDV) Z0FRAN ONE (09:10)
[2019-07-29] MEDS ORDERED: TAMS0.4C98 PO (09:10)
[2019-07-29] MEDS ORDERED: LIDOCAINE PF 2% 5 ML (XYLOCAINE) VIAL ONE (09:10)
[2019-07-29] MEDS ORDERED: proPOfol 200 MG/20 ML (DIPRIVAN) VIAL IV ONE ×2 (09:10→10:51)
[2019-07-29] MEDS ORDERED: MIDAZOLAM 2 MG/2 ML (VERSED) VIAL ONE (09:10)
[2019-07-29] MEDS ORDERED: SEVOFLURANE (ULTANE) 15 ML INHAL SOLN ONE ×3 (09:10→11:03)
[2019-07-29] MEDS ORDERED: DEXAMETHASONE 10 MG/ML (DECADRON) 1 ML VIAL ONE (09:10)
[2019-07-29] MEDS ORDERED: CATHETER FLUSH 10 ML SYR IV PRN (09:15)
[2019-07-29] MEDS ORDERED: KETOROLAC 30 MG/ML VIAL ONE (10:51)
[2019-07-29] MEDS ORDERED: FUROSEMIDE 40 MG/4 ML INJ (LASIX) ONE (10:51)
[2019-07-29] MEDS ORDERED: ROCURONIUM 10 MG/ML 5 ML SYRINGE IV ONE (10:54)
[2019-07-29] MEDS ORDERED: NEOSTIGMINE 3 MG/3 ML VIAL ONE (10:57)
[2019-07-29] MEDS ORDERED: GLYCOPYRROLATE 0.2 MG/ML (ROBINUL) 2 ML VIAL ONE (10:57)
[2019-07-29] MEDS ORDERED: morphine INJ 10 MG/ML 1ML (SYR OR VIAL) IVP ONE (11:00)
[2019-07-29] MEDS ORDERED: MEPERIDINE (DEMEROL) INJ 50 MG/ML IVP ONE (11:00)
[2019-07-29] MEDS ORDERED: ONDANSETRON 4 MG/2 ML (SDV) Z0FRAN IVP PRN (11:00)
--- NOTE | 2019-07-29 11:04 | Discharge Inst-Urology ---
Discharge Inst-Urology Reconcile Patient Problems Problems Reviewed?: Yes Final Diagnosis LT DISTAL URETERAL STONE Patient Instructions/Follow Up Plan/Assessment/Instructions Please make appointment to been seen in office in 2 weeks. Increase oral fluids for 48 hours and then as needed. Diet and Activity as tolerated. If questions or concerns contact your physician Or seek help at emergency department. MARIANA CÁRDENAS MD Jul 29, 2019 11:04
--- NOTE | 2019-07-29 11:43 | Anesthesia-General Post-Op ---
General Patient Condition Mental Status/LOC: Same as Preop Cardiovascular: Satisfactory Nausea/Vomiting: Absent Respiratory: Satisfactory Pain: Controlled Complications: Absent Post Op Complications Complications None Follow Up Care/Instructions Patient Instructions None needed. Anesthesia/Patient Condition Patient Condition Patient is doing well, no complaints, stable vital signs, no apparent adverse anesthesia problems. No complications reported per nursing. FABIO GUTIÉRREZ CRNA Jul 29, 2019 11:42
[2019-07-29] MEDS ORDERED: SULF1TAB35 PO (12:38)
[2019-07-29] MEDS ORDERED: PHEN-640 PO (12:38)
[2019-07-29] MEDS ORDERED: HYDROcodone/APAP 5 MG/325 MG (LORTAB) TAB ONE (12:41)
--- NOTE | 2019-07-29 15:21 | OPERATIVE REPORT ---
DATE OF SERVICE: 07/29/2019 PREOPERATIVE DIAGNOSIS: Left distal ureteral stone. POSTOPERATIVE DIAGNOSIS: Left distal ureteral stone. OPERATION PERFORMED: Left ureteroscopy with stone basket. SURGEON: Lui Cárdenas MD ANESTHESIA: General. COMPLICATIONS: None. DESCRIPTION OF PROCEDURE: Under satisfactory general anesthesia, the patient in lithotomy position, genitalia were prepped and draped in the usual sterile fashion. Cystoscope was introduced under vision. The anterior urethra was normal. The prostate was nonobstructing. Bladder neck was open. The bladder was inspected essentially normal except for a sluggish efflux on the left side. Using the foroblique lens, I dilated the left ureteral orifice intramural portion to the level of the stone, which I felt disimpacted by the instrumentation. I removed the cystoscope, passed a 6.9 American semi-rigid ureteroscope, visualized the stone, engaged it with a 3-American Wise basket and extracted it completely. I went back with ureteroscope to confirm no more fragments or residual stone and the integrity of the ureter, went up to the proximal ureter. I removed the ureteroscope, reinserted the cystoscope to empty the bladder. The patient tolerated the procedure and anesthesia well and was sent to recovery room in stable condition after receiving 40 mg of Lasix and 30 mg of Toradol IV. Job ID: [id number] DocumentID: [id number] Dictated Date: 07/29/2019 11:08:48 Senior Sharepoint Architect Date: 07/29/2019 15:20:18 Dictated By: LUI CÁRDENAS MD
== END 2019-07-29 12:53 | disposition home or self-care (01) ==
LOC: SDC 08:23
PROVIDERS: ATTEND Urology
DX: N20.1 Calculus of ureter (principal); F17.210 Nicotine dependence, cigarettes, uncomplicated; F19.90 Other psychoactive substance use, unspecified, uncomplicated; Z90.49 Acquired absence of other specified parts of digestive tract; Z79.891 Long term (current) use of opiate analgesic; Z88.8 Allergy status to other drugs, medicaments and biological substances; Z79.899 Other long term (current) drug therapy
CPT/HCPCS: 74018; 87081